=== PATIENT | female | born 1945 | race Caucasian/White ===

== ENCOUNTER 2022-02-06 16:29 | Inpatient (IN) | payer MEDICARE, BC ==
[~2022-02-06] VITALS: Ht 157.5 cm; Wt 93.4 kg
--- NOTE | 2022-02-06 16:50 | NUR ---
ESTABLISHED IV LINE 20G RIGHT AC
--- NOTE | 2022-02-06 16:50 | NUR ---
C/O FEVER/ CHILLS X 3 DAYS
--- NOTE | 2022-02-06 17:09 | NUR ---
BLOOD SAMPLE OBTAINED SENT TO LAB
--- NOTE | 2022-02-06 17:11 | NUR ---
RAPID INFLUENZA AND COVID SWAB TAKEN SENT TO LAB
[2022-02-06 17:30] LABS: BASOPHILS % (AUTO) 0.5 % (0.0-2.0); HEMATOCRIT 37 % (33-45); HEMOGLOBIN 12.3 g/dL (11.5-14.8); LYMPHOCYTES # (AUTO) 0.1 K/uL (0.8-4.8); LYMPHOCYTES % (AUTO) 3.1 % (20.0-44.0); MEAN CORPUSCULAR HGB CONC 33 g/dl (31.0-36.0); MEAN CORPUSCULAR VOLUME 91 fL (82-100); MONOCYTES # (AUTO) 0.1 K/uL (0.1-1.30); MONOCYTES % (AUTO) 1.4 % (2.0-12.0); NEUTROPHILS # (AUTO) 3.7 K/uL (1.8-8.9); PLATELET COUNT (AUTO) 171 K/uL (150-450); RED BLOOD CELL COUNT(AUTO) 4.12 MIL/uL (4.0-5.2); WHITE BLOOD COUNT (AUTO) 3.9 K/uL (4.3-11.0)
[2022-02-06] MEDS ORDERED: IV NS 0.9% 1,000 ML BAG IV ONE ×2 (17:30→18:30)
--- NOTE | 2022-02-06 17:32 | NUR ---
URINE SAMPLE SENT TO LAB
[2022-02-06 17:41] LABS: CARBON DIOXIDE 21 mmol/L (21-32); CHLORIDE 99 mmol/L (98-107); CREATININE 2.3 mg/dL (0.6-1.3); GLUCOSE 213 mg/dL (74-106); SODIUM SERUM 133 mmol/L (136-145); UREA NITROGEN, BLOOD 39 mg/dL (7-18)
--- NOTE | 2022-02-06 17:50 | NUR ---
CRIT.LAB : TROPONIN = [id number] AWARE
[2022-02-06 17:54] LABS: ALANINE AMINOTRANSFERASE 19 U/L (12-78); ALBUMIN 2.5 g/dL (3.4-5.0); ALKALINE PHOSPHATASE 196 U/L (46-116); ASPARTATE AMINOTRANSFERASE 35 U/L (15-37); BILIRUBIN,DIRECT 0.3 mg/dL (0.0-0.2); BILIRUBIN,TOTAL 0.7 mg/dL (0.2-1.0); TOTAL PROTEIN, SERUM 6.7 g/dL (6.4-8.2)
[2022-02-06] MEDS ORDERED: ASPIRIN 81 MG TAB.CHEW PO ONE (18:00)
[2022-02-06] MEDS ORDERED: MELO-107 PO (18:02)
[2022-02-06] MEDS ORDERED: PIOG15TA8 PO (18:02)
[2022-02-06] MEDS ORDERED: METF-442 PO (18:02)
[2022-02-06] MEDS ORDERED: ASPIRIN 81 MG TAB.CHEW ONE (18:10)
[2022-02-06] MEDS ORDERED: PIPERACILLIN /TAZOBACTAM 3.375 G VIAL IV ONE (18:20)
[2022-02-06] MEDS ORDERED: PIPERACILLIN /TAZOBACTAM 3.375 G in IV D5W 50 ML IV ONE (18:30)
[2022-02-06] MEDS ORDERED: HEPARIN INFUSION/D5W 500 ML IV ONE (18:30)
[2022-02-06] MEDS ORDERED: HEPARIN SODIUM, PORCINE 5000 UNITS/1 ML VIAL IV ONE (18:30)
[2022-02-06 18:46] LABS: BILIRUBIN,URINE 1+ (NEGATIVE); COLOR,URINE YELLOW (YELLOW); LEUKOCYTE ESTERASE ,URINE 1+ (NEGATIVE); NITRITE, URINE NEGATIVE (NEGATIVE); PH,URINE 5.5 (5.0-8.0); PROTEIN,URINE 2+ mg/dl (NEGATIVE); UGLUCOSE NEGATIVE (NEGATIVE); UROBILINOGEN,URINE 0.2 EU/dL (0.2)
[2022-02-06 19:04] LABS: BACTERIA,URINE 3+ /HPF (None Seen); MUCUS,URINE Few /LPF (None Seen); RBC,URINE 51-80 /HPF (0-2); SQUAMOUS EPITHELIAL CELL,UR 21-50 /HPF (None Seen)
--- NOTE | 2022-02-06 19:05 | NUR ---
MOVE SHEET SUBMITTED
[2022-02-06] MEDS ORDERED: ENOXAPARIN SODIUM 80 MG/0.8 ML DISP.SYRIN SQ ONE (19:30)
[2022-02-06] MEDS ORDERED: ENOXAPARIN SODIUM 100 MG/ML DISP.SYRIN SQ ONE (19:36)
--- NOTE | 2022-02-06 19:46 | NUR ---
LACTIC ACID 2.7, AWARE
[2022-02-06] MEDS ORDERED: Z GUARD REMEDY 4 OZ OINT TP PRN (20:00)
[2022-02-06] MEDS ORDERED: ACETAMINOPHEN 325 MG TABLET PO PRN (20:00)
[2022-02-06] MEDS ORDERED: DEXTROSE 50%-WATER 50 ML DISP.SYRIN IV PRN (20:00)
[2022-02-06] MEDS ORDERED: *INSULIN REGULAR(HUMULIN R)HUM 100 UNIT/ML VIAL SQ PRN (20:00)
[2022-02-06] MEDS ORDERED: MAGNESIUM HYDROXIDE 30 ML UDC PO PRN (20:00)
[2022-02-06] MEDS ORDERED: ONDANSETRON HCL/PF 4 MG/2 ML VIAL IVP PRN (20:00)
[2022-02-06] MEDS ORDERED: MAG HYDROX/AL HYDROX/SIMETH 30 ML UDC PO PRN (20:00)
[2022-02-06] MEDS ORDERED: ZOLPIDEM TARTRATE 5 MG TABLET PO PRN (20:00)
[2022-02-06] MEDS ORDERED: HYDROCORTISONE SOD SUCCINATE 100 MG/2 ML VIAL IV ONE (21:00)
[2022-02-06 22:22] LABS: BAND % (MANUAL) 3 % (0.0-5.0); LYMPHOCYTES % (MANUAL) 5 % (16-48); MONOCYTES % (MANUAL) 2 % (0-11.0); NEUTROPHILS % (MANUAL) 90 (42-76)
[2022-02-06] MEDS: BLOOD SUGAR DIAGNOSTIC 1 EACH STRIP VI SCH (23:33)
[2022-02-07] MEDS ORDERED: PIPERACILLIN /TAZOBACTAM 3.375 G in IV D5W 50 ML IV SCH ×2
[2022-02-07] MEDS ORDERED: PIPERACILLIN /TAZOBACTAM 2.25 G VIAL IV ONE (00:54)
[2022-02-07] MEDS: ZOSYN IVPB 2.25 G in IV D5W 50ml IV SCH ×2 (01:00→06:00)
[2022-02-07 05:57] LABS: EOSINOPHILS % (AUTO) 0.2 % (0.0-6.0); HEMATOCRIT 33 % (33-45); HEMOGLOBIN 10.6 g/dL (11.5-14.8); LYMPHOCYTES # (AUTO) 0.8 K/uL (0.8-4.8); LYMPHOCYTES % (AUTO) 5.9 % (20.0-44.0); MEAN CORPUSCULAR HGB CONC 33 g/dl (31.0-36.0); MEAN CORPUSCULAR VOLUME 91 fL (82-100); MONOCYTES # (AUTO) 0.8 K/uL (0.1-1.30); MONOCYTES % (AUTO) 5.5 % (2.0-12.0); NEUTROPHILS # (AUTO) 12.5 K/uL (1.8-8.9); NEUTROPHILS % (AUTO) 88.4 % (43.0-81.0); PLATELET COUNT (AUTO) 163 K/uL (150-450); RED BLOOD CELL COUNT(AUTO) 3.58 MIL/uL (4.0-5.2); WHITE BLOOD COUNT (AUTO) 14.1 K/uL (4.3-11.0)
[2022-02-07 06:07] LABS: CALCIUM, SERUM 7.4 mg/dL (8.5-10.1); CARBON DIOXIDE 23 mmol/L (21-32); CHLORIDE 104 mmol/L (98-107); CREATININE 2.6 mg/dL (0.6-1.3); GLUCOSE 251 mg/dL (74-106); MAGNESIUM 2.1 mg/dL (1.8-2.4); PHOSPHORUS 3.7 mg/dL (2.5-4.9); POTASSIUM 4.5 mmol/L (3.5-5.1); SODIUM SERUM 138 mmol/L (136-145); UREA NITROGEN, BLOOD 47 mg/dL (7-18)
--- NOTE | 2022-02-07 07:40 | NUR ---
[facility] BED 115-1
--- NOTE | 2022-02-07 07:51 | NUR ---
REPORT GIVEN TO JESICA SANTANA. PT AWAITING TRANSFER TO FLOOR.
[2022-02-07] MEDS ORDERED: CEFEPIME 2 GM in IV D5W 100 ML IV ONE (08:00)
[2022-02-07 08:20] VITALS: BP 134/79
--- NOTE | 2022-02-07 08:20 | NUR ---
RN NOTES RECEIVED PT FROM ER IN ROOM 115-1. DESTINEE STATUS , PT IS A/Ox4, RWANDAN SPEAKING, ON RA , NO SOB NOTED, O2 SAT WNL, ON TELE SR WITH OCC PVC'S , AND T WAVE ELEVATION , PT IS UP TO BATHROOM , VOIDING WELL , SUPPORTIVE SON AT THE BEDSIDE, IV SITE CDI, SR UP x3, CALL LIGHT WITHIN EASY REACH, BED LOCKED AND IN LOWEST POSITION, CONTINUE TO MONITOR .
[2022-02-07] MEDS: ASPIRIN 81 MG TAB.CHEW PO SCH (09:41)
[2022-02-07] MEDS: INSULIN REGULAR, HUMAN 100 UNIT/ML 3 ML VIAL SQ PRN ×3 (09:43→21:23)
[2022-02-07] MEDS: BLOOD SUGAR DIAGNOSTIC 1 EACH STRIP VI SCH ×4 (09:45→21:24)
[2022-02-07] MEDS ORDERED: LORAZEPAM INJ 2 MG/ML VIAL IV PRN (10:30)
[2022-02-07] MEDS: ENOXAPARIN SODIUM 100 MG/ML DISP.SYRIN SQ SCH (11:13)
[2022-02-07 12:00] VITALS: BP 116/67
[2022-02-07] MEDS: IV NS 0.9% 1,000 ML IV PRN (12:17)
[2022-02-07] MEDS ORDERED: ZOSYN IVPB 2.25 G in IV D5W 50ml IV SCH (14:00)
--- NOTE | 2022-02-07 15:00 | NUR ---
RN NOTES CONSENT OBTAINED FOR NEPHROSTOMY TUBE PLACEMENT IN AM.
[2022-02-07 16:00] VITALS: BP 122/66
--- NOTE | 2022-02-07 18:21 | NUR ---
RN NOTES NO DISTESS NOTED ON THIS SHIFT, IVF AT 100 CC/HR RUNNING, PT AT REST , UP TO THE BATHROOM PRN , WILL ENDORSE TO FOOD CONSULTANT NURSE FOR CONTINUITY OF CARE
[2022-02-07 20:00] VITALS: BP 122/73
--- NOTE | 2022-02-07 23:04 | NUR ---
PATIENT VERY CONGESTED, ON NRM AT 15LPM SATING AT THIS THIS MID 80S, INFORMED KATIE WOODARD THAT PATIENT HAD ABGS DRAN AT 642PM, AND SENT HER THE RESULTS, PER HER GIVE LASIX IVP 40MG ONCE NOW, ORDER NOTED AND CARRIED OUT, MEDICATION JUST ADMINISTERED, WILL CONTINUE TO MONITOR CLOSELY, SUCTIONING PROVIDED WELL AT THIS TIME, INFORMED ALSO THAT NO POLST IN FACILITY FOR PATIENT AND PER THEM TO CONSIDER PATIENT FULL CODE, KATIE WARREN TO PUT ORDER FOR FULL CODE. Addendum: 02/08/22 at 0432 by NÉSTOR RODRIGUEZ RN WRONG ENTRY, ENTRY FOR DIFFERENT PATIENT.
[2022-02-08] VITALS (17 sets, daily range): BP systolic 100–156; BP diastolic 60–88
[2022-02-08 06:04] LABS: CALCIUM, SERUM 7.9 mg/dL (8.5-10.1); CARBON DIOXIDE 24 mmol/L (21-32); CHLORIDE 108 mmol/L (98-107); CREATININE 1.4 mg/dL (0.6-1.3); GLUCOSE 188 mg/dL (74-106); SODIUM SERUM 141 mmol/L (136-145); UREA NITROGEN, BLOOD 42 mg/dL (7-18)
[2022-02-08 06:20] LABS: BASOPHILS % (AUTO) 0.1 % (0.0-2.0); HEMATOCRIT 36 % (33-45); LYMPHOCYTES # (AUTO) 0.9 K/uL (0.8-4.8); LYMPHOCYTES % (AUTO) 8.1 % (20.0-44.0); MEAN CORPUSCULAR HGB CONC 33 g/dl (31.0-36.0); MEAN CORPUSCULAR VOLUME 89 fL (82-100); MONOCYTES % (AUTO) 9.2 % (2.0-12.0); NEUTROPHILS # (AUTO) 9.3 K/uL (1.8-8.9); NEUTROPHILS % (AUTO) 81.6 % (43.0-81.0); PLATELET COUNT (AUTO) 171 K/uL (150-450); RED BLOOD CELL COUNT(AUTO) 4.11 MIL/uL (4.0-5.2); WHITE BLOOD COUNT (AUTO) 11.3 K/uL (4.3-11.0)
--- NOTE | 2022-02-08 06:38 | NUR ---
END OF SHIFT, PATIENT AWAKE AT THIS TIME, A/O X4, ON RA WITH OPTIMAL O2 ST LEVEL, NSR IN TELE MONITOR WITH HR 90S AT THIS TIME, NO SIGNIFICANT CHANGE IN CONDITION DURING THE NIGHT, VITAL SINGS STABLE, CONTINUE ON IV FLUIDS ORDERED, NPO SINCE MIDNIGHT FOR CT GUIDED PARACENTESES LEFT NEPHROSTOMY TUBE TODAY, SON AT BEDSIDE, ALL SAFETY MEASURES IN PLACE, BED IN LOWEST AND LOCKED POSITION, CALL LIGHTS WITHIN REACH, WILL ENDORSE CONTINUITY OF CARE TO ONCOMING NURSE.
[2022-02-08] MEDS: BLOOD SUGAR DIAGNOSTIC 1 EACH STRIP VI SCH ×4 (07:42→21:18)
[2022-02-08] MEDS ORDERED: CEFEPIME 1 GM in IV D5W 50 ML IV SCH (08:00)
[2022-02-08] MEDS: ASPIRIN 81 MG TAB.CHEW PO SCH (08:06)
[2022-02-08] MEDS: CEFEPIME 2 GM in IV D5W 50 ML IV SCH ×2 (08:51→20:26)
--- NOTE | 2022-02-08 09:31 | NUR ---
RN NOTE LAB CALLED, NOTIFIED FOR BLOOD CULTURE POSITIVE FOR GRAM POSITIVE ARMAAN. DR. ANGELES NOTIFIED.
[2022-02-08] MEDS: ENOXAPARIN SODIUM 100 MG/ML DISP.SYRIN SQ SCH (11:00)
--- NOTE | 2022-02-08 11:45 | NUR ---
RADIOLOGIST SPOKE TO DR ANGELES, OF NOW THE PROCEDURE IS ON HOLD TILM FURTHER NOTICE
[2022-02-08] MEDS ORDERED: DILTIAZEM HCL IV 125 MG in IV NS 0.9% 100 ML IV PRN (14:00)
[2022-02-08] MEDS ORDERED: DILTIAZEM HCL 25 MG IV IV ONE (14:00)
--- NOTE | 2022-02-08 14:15 | NUR ---
RN NOTE PT TRANSFER TO ICU ROOM 153. REPORT GIVEN TO RN CATA PRESENT AT BEDSIDE. SON WITH PT. BP AND O2 SAT STABLE ON RA, HR 165 AFIB WITH RVR.
[2022-02-08] MEDS ORDERED: VANCOMYCIN 1.25 GM in IV D5W 250 ML IV ONE (15:00)
[2022-02-08] MEDS: IV NS 0.9% 1,000 ML IV PRN (19:29)
--- NOTE | 2022-02-08 19:32 | NUR ---
CLOSING PT IN BED A/O X4 ABLE TO MAKE NEEDS KNOWN, WALLISIAN SPEAK SON IN ROOM POT RELINER. AFIB CONVERTED TO SR/ST CARDIZEM DRIP DC BY DR. BURDEN. VITALS WNL. NO ACUTE S/S OF DISTRESS. BREATHING IS EVEN AND UNLABORED ON ROOM AIR. MAINTENANCE FLUIDS RUNNING @100ML/HR. 20G RAC AND 22G RIGHT WRIST PATENT AND FLUSHING, NO PAIN WAS REPORTED PY THE PT NO SWELLING NOTED. PT IS AMBULATORY WITH BED SIDE COMODE. IS ABLE TO URINATE YELLOW URINE WITH STRONG ODOR. BED LOCKED IN LOWEST POSITION CALL LIGHT WITH REACH HOB @90 DEGREES
--- NOTE | 2022-02-08 19:43 | NUR ---
FAMILY ENGAGEMENT SPECIALIST NOTE PT IN BED AWAKE. A/O X 4, MONTENEGRIN SPEAKING. SON AT BED SIDE. OK'D BY MICKIE FOR HIM TO STAY. PT IN NO DISTRESS OR DISCOMFORT NOTED. DENIES PAIN. IVF NS INFUSING AT 100 ML/HR, NO INFILTRATION NOTED AT RT WRIST #20 G ON TELE SR HR 98, PT WILL BE NPO AFTER MIDNIGHT. BSC PRESENT. ALL NEEDS ATTENDED. VSS. CONTINUE TO MONITOR HER.
[2022-02-08] MEDS: METOPROLOL TARTRATE 25 MG TABLET PO SCH (20:28)
[2022-02-09] VITALS (16 sets, daily range): BP systolic 111–151; BP diastolic 57–97
--- NOTE | 2022-02-09 06:39 | NUR ---
PHOTOGRAPH DEVELOPER NOTE PT IN BED ASLEEP, AROUSABLE. NO DISTRESS OR DISCOMFORT NOTED. DENIES PAIN. IVF NS INFUSING AT 100 ML/HR NO S/S OF INFILTRATION NOTED. SON AT BED SIDE PT ON TELE SR. ALL NEEDS ATTENDED. SIDE RAILS UP X 2 AND CALL LIGHT WITHIN REACH. WILL ENDORSE TO DAY SHIFT NURSE FOR CONTINUE TO CARE.
[2022-02-09 06:42] LABS: CARBON DIOXIDE 25 mmol/L (21-32); CHLORIDE 111 mmol/L (98-107); GLUCOSE 183 mg/dL (74-106); MAGNESIUM 2.3 mg/dL (1.8-2.4); PHOSPHORUS 2.7 mg/dL (2.5-4.9); SODIUM SERUM 143 mmol/L (136-145); UREA NITROGEN, BLOOD 30 mg/dL (7-18)
--- NOTE | 2022-02-09 06:47 | NUR ---
NUCLEAR MONITORING TECHNICIAN NOTE PT REMAIN NPO.SINCE MIDNIGHT.
[2022-02-09] MEDS: BLOOD SUGAR DIAGNOSTIC 1 EACH STRIP VI SCH ×4 (08:00→21:43)
[2022-02-09] MEDS: CEFEPIME 2 GM in IV D5W 50 ML IV SCH ×2 (08:00→21:23)
--- NOTE | 2022-02-09 08:00 | NUR ---
RN NOTES RECEIVED PATIENT A/O X4, NO ACUTE RESPIRATORY DISTRESS, ST 110 ON BEDSIDE MONITOR. PATIENT REFUSED PAIN, VSS, ABLE TO VERBALIZED SELF, NPO, SCHEDULED FOR CT GUIDED NEPHROSTOMY TUBE INSERTION, HELD AM MEDICATION. BS-181 MG/DL NO COVERAGE GIVEN. PATIENT ASSIST TO THE BATHROOM, REFUSED DIZZINESS. PATIENT MODIFIED SELF CARE. SON NEXT TO THE BED. IV ACCESS ON RIGHT HAND INTACT, INFUSING NS @100ML/HR, ALSO STARTED ANTIBIOTIC @100ML/HR. CALL LIGHT WITHIN TO REACH. WILL FOLLOW UP.
[2022-02-09] MEDS: ASPIRIN 81 MG TAB.CHEW PO SCH (09:00)
[2022-02-09] MEDS: METOPROLOL TARTRATE 25 MG TABLET PO SCH ×2 (09:00→21:24)
[2022-02-09 09:16] LABS: BASOPHILS % (AUTO) 0.3 % (0.0-2.0); HEMATOCRIT 36 % (33-45); HEMOGLOBIN 11.9 g/dL (11.5-14.8); LYMPHOCYTES # (AUTO) 1.5 K/uL (0.8-4.8); LYMPHOCYTES % (AUTO) 11.4 % (20.0-44.0); MEAN CORPUSCULAR HGB CONC 33 g/dl (31.0-36.0); MEAN CORPUSCULAR VOLUME 89 fL (82-100); MONOCYTES # (AUTO) 1.4 K/uL (0.1-1.30); MONOCYTES % (AUTO) 10.6 % (2.0-12.0); NEUTROPHILS # (AUTO) 10.3 K/uL (1.8-8.9); NEUTROPHILS % (AUTO) 75.7 % (43.0-81.0); PLATELET COUNT (AUTO) 203 K/uL (150-450); WHITE BLOOD COUNT (AUTO) 13.5 K/uL (4.3-11.0)
--- NOTE | 2022-02-09 10:30 | NUR ---
RN NOTES GET CALL FROM RADIOLOGIST Dr FUNES, PATIENT HELD FOR PROCEDURE TODAY, AND WAITING CLEARANCE FROM RIVET HOLE MACHINE OPERATOR. PATIENT GOING TO TRANSFER TO THE TELE UNIT ROOM [address] ANGELES .
--- NOTE | 2022-02-09 10:55 | NUR ---
RN NOTES TRANSFERRED PATIENT TO THE TELE UNIT WITHIN STABLE CONDITION WITH MEDICATION. BEDSIDE REPORT GIVEN RN FOLLOW PLAN OF CARE. FAMILY NEXT TO THE BEDSIDE.
[2022-02-09] MEDS: ENOXAPARIN SODIUM 100 MG/ML DISP.SYRIN SQ SCH (11:00)
--- NOTE | 2022-02-09 11:41 | NUR ---
RN notes: pt came from ICU with ESTHER Welch, alert and oriented x 4, not in any distress, right upper arm picc line with 3 lumen patent and flushing well,with iv running NS at 100 ml/hr.family at bedside,denied any pain or discomfort.bed in low and locked position, side rails up x 3, bed alarm is on,call light within reach. will monitor
[2022-02-09] MEDS: INSULIN REGULAR, HUMAN 100 UNIT/ML 3 ML VIAL SQ PRN ×2 (12:45→18:06)
--- NOTE | 2022-02-09 12:58 | NUR ---
RN NOTES: RADIOLOGY CALLED NEPHROSTOMY PLACEMENT WILL BE DONE TOMORROW SPOKE TO DR ANGELES SAID PT CAN EAT AND START NPO MIDNIGHT AND CONTINUE TO HOLD BLOOD THINNER, PT AND HER SON MADE AWARE
[2022-02-09] MEDS ORDERED: VANCOMYCIN 1.25 GM in IV D5W 250 ML IV SCH (15:00)
[2022-02-09] MEDS: IV NS 0.9% 1,000 ML IV PRN (15:16)
--- NOTE | 2022-02-09 19:10 | NUR ---
GROOMING ASSISTANT CLOSING NOTES: PATIENT AWAKE AT THIS TIME, A/O X4, ON RA WITH OPTIMAL O2 ST LEVEL, NSR IN TELE MONITOR WITH HR 90S AT THIS TIME, NO SIGNIFICANT CHANGE IN CONDITION D, VITAL SINGS STABLE, CONTINUE ON IV FLUIDS ORDERED, SON AT BEDSIDE, ALL SAFETY MEASURES IN PLACE, BED IN LOWEST AND LOCKED POSITION, CALL LIGHTS WITHIN REACH, ENDORSEDFOR CONTINUITY OF CARE TO ONCOMING NURSE.
--- NOTE | 2022-02-09 19:30 | NUR ---
RN OPENING NOTE PT A&OX4. SKIN IS WARM AND DRY. RESPIRATIONS EVEN AND UNLABORED ON RA. MAE PICC LINE INTACT AND RUNNING NS AT 100 ML/HR. SON OF PT AT BEDSIDE. DENIES OTHER NEEDS AT THIS TIME. SAFETY PRECAUTIONS IN PLACE. BED LOCKED AND AT LOWEST LEVEL WITH 2 RAILS UP. CALL LIGHT WITHIN REACH.
[2022-02-10] VITALS: BP 119/61
[2022-02-10 04:00] VITALS: BP 113/59
[2022-02-10 06:25] LABS: BASOPHILS % (AUTO) 0.4 % (0.0-2.0); EOSINOPHILS % (AUTO) 3.2 % (0.0-6.0); HEMATOCRIT 35 % (33-45); HEMOGLOBIN 11.4 g/dL (11.5-14.8); LYMPHOCYTES # (AUTO) 1.2 K/uL (0.8-4.8); LYMPHOCYTES % (AUTO) 13.8 % (20.0-44.0); MEAN CORPUSCULAR HGB CONC 33 g/dl (31.0-36.0); MEAN CORPUSCULAR VOLUME 90 fL (82-100); MONOCYTES # (AUTO) 1.1 K/uL (0.1-1.30); MONOCYTES % (AUTO) 13.2 % (2.0-12.0); NEUTROPHILS % (AUTO) 69.4 % (43.0-81.0); PLATELET COUNT (AUTO) 187 K/uL (150-450); RED BLOOD CELL COUNT(AUTO) 3.89 MIL/uL (4.0-5.2); WHITE BLOOD COUNT (AUTO) 8.6 K/uL (4.3-11.0)
[2022-02-10 06:29] LABS: CALCIUM, SERUM 7.8 mg/dL (8.5-10.1); CARBON DIOXIDE 26 mmol/L (21-32); CHLORIDE 110 mmol/L (98-107); CREATININE 0.9 mg/dL (0.6-1.3); GLUCOSE 187 mg/dL (74-106); MAGNESIUM 1.7 mg/dL (1.8-2.4); PHOSPHORUS 2.6 mg/dL (2.5-4.9); POTASSIUM 3.7 mmol/L (3.5-5.1); SODIUM SERUM 142 mmol/L (136-145); UREA NITROGEN, BLOOD 20 mg/dL (7-18)
--- NOTE | 2022-02-10 06:49 | NUR ---
RN CLOSING NOTE PT A&OX4. SKIN IS WARM AND DRY. RESPIRATIONS EVEN AND UNLABORED ON RA. MAE PICC LINE INTACT AND RUNNING NS AT 100 ML/HR. PRE-OP CHECKLIST PLACED IN PT CHART. DENIES OTHER NEEDS AT THIS TIME. SAFETY PRECAUTIONS IN PLACE. BED LOCKED AND AT LOWEST LEVEL WITH 2 RAILS UP. CALL LIGHT WITHIN REACH.
[2022-02-10] MEDS: IV NS 0.9% 1,000 ML IV PRN (07:14)
[2022-02-10] MEDS: BLOOD SUGAR DIAGNOSTIC 1 EACH STRIP VI SCH ×2 (07:54→12:54)
--- NOTE | 2022-02-10 07:55 | NUR ---
SET UP OPERATOR OPENING NOTES RECEIVED PATIENT A/O X4, ALERT AND AWAKE, SON AT THE BEDSIDE, NO ACUTE RESPIRATORY DISTRESS, PATIENT DENIES ANY PAIN, ABLE TO VERBALIZED NEEDS, PATIENT CONTINUED ON NPO, SCHEDULED FOR CT GUIDED NEPHROSTOMY TUBE INSERTION, HELD AM MEDICATION. BS-176 MG/DL NO COVERAGE GIVEN. ON TELE MONITORING WITH SR HR 70. PATIENT ASSIST TO THE BATHROOM, REFUSED DIZZINESS. RIGHT UPPER ARM PICC LINE NOTED PATENT AND INTACT, IV ACCESS ON RIGHT HAND INTACT, INFUSING NS @100ML/HR. CALL LIGHT WITHIN REACH. SAFETY MEASURES IN PLACED. PLAN OF CARE ON GOING.
[2022-02-10 08:00] VITALS: BP 131/70
[2022-02-10] MEDS ORDERED: CEFEPIME 2 GM in IV D5W 50 ML IV SCH (08:00)
[2022-02-10] MEDS: ASPIRIN 81 MG TAB.CHEW PO SCH (08:38)
[2022-02-10] MEDS: METOPROLOL TARTRATE 25 MG TABLET PO SCH (08:38)
--- NOTE | 2022-02-10 10:47 | NUR ---
MECHANICAL STRIPER NOTES PATIENT IS OUT FOR CT GUIDED NEPHROSTOMY TUBE PLACEMENT. PATIENT STABLE DURING TRANSFER.
[2022-02-10] MEDS: ENOXAPARIN SODIUM 100 MG/ML DISP.SYRIN SQ SCH (11:00)
[2022-02-10] MEDS ORDERED: Magnesium 1GM/D5W 100ML PREMIX 100 ML IV SCH (11:00)
[2022-02-10] MEDS ORDERED: MIDAZOLAM HCL 2 MG/2ML VIAL IV PRN (11:30)
[2022-02-10] MEDS ORDERED: NALOXONE PREFILLED SYRINGE 2 MG/2 ML SYRINGE IV PRN (11:30)
[2022-02-10] MEDS ORDERED: FENTANYL PF 250MCG/5ML AMPUL IV PRN (11:30)
[2022-02-10] MEDS ORDERED: FLUMAZENIL 0.5 MG VIAL IV PRN (11:30)
[2022-02-10 12:00] VITALS: BP 120/64
--- NOTE | 2022-02-10 12:37 | NUR ---
ETIOLOGIST NOTES PATIENT BACK FROM CT. PATIENT STABLE. PATIENT STATED SHE WANT'S TO GO HOME, INFORMED DR. ANGELES. PATIENT ALERT AND VERBALLY RESPONSIVE, NO SOB NOTED, NOT IN DISTRESS, DENIES ANY PAIN. PLAN OF CARE ONGOING.
[2022-02-10] MEDS: Magnesium 1GM/D5W 100ML PREMIX 100 ML IV SCH ×2 (12:42→14:10)
[2022-02-10] MEDS ORDERED: ASPI-1169 PO (13:48)
[2022-02-10] MEDS ORDERED: LEVO750T46 PO (13:48)
[2022-02-10] MEDS ORDERED: METO25TA20 PO (13:48)
--- NOTE | 2022-02-10 16:01 | NUR ---
BARGE LOADER NOTES DISCHARGE INSTRUCTIONS GO OVER WITH PATIENT AND AND SON AT THE BEDSIDE, CONFIRMED UNDERSTANDING, ALL DISCHARGE PAPER WORKS AND INVENTORY LIST SIGNED BY THE , ALL DISCHARGED PAPERWORKS AND PERSONAL BELONGINGS RELEASED TO THE PATIENT AND FAMILY. WHEELED PATIENT TO THE [facility] STABLE.
== END 2022-02-10 16:15 | disposition home or self-care (01) | DRG 871 ==
LOC: ER 16:33 → TRANSITION 21:35 → TELE1 02-07 08:04 → TELE-TD 02-07 08:38 → ICU 02-08 14:06 → TELE1 02-09 11:30
PROVIDERS: ADMIT Nurse Practitioner Acute Care; ATTEND Student in an Organized Health Care Education/Training Program
DX: A41.51 Sepsis due to Escherichia coli [E. coli] (principal); I21.A1 Myocardial infarction type 2; R65.21 Severe sepsis with septic shock; I26.99 Other pulmonary embolism without acute cor pulmonale; N39.0 Urinary tract infection, site not specified; E87.20 Acidosis, unspecified; E44.0 Moderate protein-calorie malnutrition; N13.6 Pyonephrosis; I47.1 Supraventricular tachycardia; N20.1 Calculus of ureter; Z79.84 Long term (current) use of oral hypoglycemic drugs; Z79.899 Other long term (current) drug therapy; B96.89 Other specified bacterial agents as the cause of diseases classified elsewhere; E88.09 Other disorders of plasma-protein metabolism, not elsewhere classified; E66.9 Obesity, unspecified; Z68.36 Body mass index [BMI] 36.0-36.9, adult; Z20.822 Contact with and (suspected) exposure to COVID-19; Z87.442 Personal history of urinary calculi; Z87.440 Personal history of urinary (tract) infections; N18.9 Chronic kidney disease, unspecified; E11.65 Type 2 diabetes mellitus with hyperglycemia; I25.10 Atherosclerotic heart disease of native coronary artery without angina pectoris; I48.0 Paroxysmal atrial fibrillation; E83.42 Hypomagnesemia; K57.30 Diverticulosis of large intestine without perforation or abscess without bleeding; M43.16 Spondylolisthesis, lumbar region
CPT/HCPCS: 36415; 71045-TC; 76770-TC; 80048-TC; 80076-TC; 81001; 82962-TC; 83605-TC; 83735-TC; 84100-TC; 84484-TC; 85025-TC; 85378-TC; 85730-TC; 87040-TC; 87081-TC; 87086-TC; 93307-TC; 93970-TC; C9803; G0378; J0692; J1650; J1720; J1815; J2405; J2543; J3370; J3475; J3490; J7030; J7050; J7060